=== PATIENT | male | born 1985 | race Caucasian/White ===

== ENCOUNTER 2018-08-01 15:14 | Emergency (ER) | payer SELFPAY | END 2018-08-01 16:26 | disposition home or self-care (01) | LOC: ERS 15:14 | DX: J01.90 Acute sinusitis, unspecified (principal); F17.210 Nicotine dependence, cigarettes, uncomplicated | CPT/HCPCS: 99283 ==

== ENCOUNTER 2022-01-20 03:18 | Emergency (ER) | payer SELFPAY ==
[2022-01-20] MEDS ORDERED: Fluorescein Opthalmic Strip ONE (03:37)
[2022-01-20] MEDS ORDERED: Proparacaine 0.5% Opth 15 ML BOT ONE (03:37)
== END 2022-01-20 04:07 | disposition home or self-care (01) ==
LOC: ERS 03:18
DX: S05.01XA Injury of conjunctiva and corneal abrasion without foreign body, right eye, initial encounter (principal); H00.013 Hordeolum externum right eye, unspecified eyelid; F17.210 Nicotine dependence, cigarettes, uncomplicated; X58.XXXA Exposure to other specified factors, initial encounter
CPT/HCPCS: 99283

== ENCOUNTER 2022-08-18 16:01 | Emergency (ER) | payer SELFPAY | END 2022-08-18 16:53 | disposition home or self-care (01) | LOC: ERS 16:01 | DX: J02.9 Acute pharyngitis, unspecified (principal); F17.210 Nicotine dependence, cigarettes, uncomplicated | CPT/HCPCS: 99283 ==